=== PATIENT | male | born 1970 | race Caucasian/White ===

== ENCOUNTER 2023-02-11 18:24 | Emergency (ER) | payer BC ==
[~2023-02-11] VITALS: Ht 170.2 cm; Wt 84.4 kg
[2023-02-11 18:41] VITALS: BP 148/98; PULSE 88; RESP 20; TEMP 98.5; O2SAT 98
[2023-02-11] MEDS ORDERED: KETOROLAC 30 MG/ML VIAL IM ONE (19:20)
[2023-02-11] MEDS ORDERED: HYDROcodone/APAP 7.5/325 MG 1 TAB PO ONE (19:20)
[2023-02-11] MEDS ORDERED: LID5T TP (20:23)
[2023-02-11] MEDS ORDERED: NAPR-54 PO (20:23)
[2023-02-11] MEDS ORDERED: ACET-8905 PO (20:23)
[2023-02-11 20:30] VITALS: BP 148/98; PULSE 88; RESP 20; TEMP 98.5; O2SAT 98
== END 2023-02-11 20:30 | disposition home or self-care (01) ==
LOC: MED 18:24
DX: S16.1XXA Strain of muscle, fascia and tendon at neck level, initial encounter (principal); S46.812A Strain of other muscles, fascia and tendons at shoulder and upper arm level, left arm, initial encounter; R07.89 Other chest pain; V49.88XA Car occupant (driver) (passenger) injured in other specified transport accidents, initial encounter; Y93.89 Activity, other specified; Y92.89 Other specified places as the place of occurrence of the external cause; Y99.8 Other external cause status
CPT/HCPCS: 96372; 99283; J1885